=== PATIENT | female | born 1965 | race African-American/Black ===

== ENCOUNTER 2017-02-11 11:48 | Emergency (ER) | payer MEDICAID ==
[~2017-02-11] VITALS: Ht 160 cm; Wt 77.3 kg
[~2017-02-11 11:48] MED LIST: ALIGN; AMBIEN 10MG10 MG PO; AMBIEN 5MG TABLE5 MG PO; ANTIBIOTIC EAR; ANTIVERT 25MG25 MG PO; ARTHRITIS MED; BENADRYL25 M2 PO; BENADRYL25 MG PO; CARDI-OMEGA1000 MG PO; CHOLESTEROL MED; CIPRO HC OTIC S10 ML OT; COLACE 100100 MG/CAP PO; CRANBERRY CONC500 MG PO; CRANBERRY400 MG PO; DIAZEPAM2 MG PO; DOXYCYCLINE 10100 MG PO; FAT ABSORB1 CAP PO; FLEXERIL 1010 MG/TAB PO; FLONASE NASAL S16 GM NS; HCTZ; HCTZ 25MG TAB25 MG PO; INDOCIN50 MG PO; IRON325 M1 PO; LORTAB 5/500 501 TAB PO; LUNESTA 1MG TAB1 MG PO; MULTIVITAMIN1 TA1 PO; MVI; NEPHRO-VITE1 TA1 PO; NEURONTIN100 MG/CAP PO; NORCO 325 MG-51 TAB PO; PHENERGAN W/CO120 ML PO; PRILOSEC 20MG20 MG PO; PRINIVIL10 MG PO; PROBIOTICA100 Milli1 PO; SAVELLA50 MG PO; SINGULAIR10 MG PO; TENORMIN 5050 MG/TAB PO; TOPROL XL25 MG PO; TUSS PO; VENTOLIN0.09 MG IH; VERELAN120 MG PO; VICODIN 5/5001 UDTAB PO; VITAMIN D 400400 IU PO; ZITHROMAX 250M250 MG PO; ZITHROMAX Z PA250 MG PO; ZOCOR5 MG PO; ZOFRAN 4MG T4 MG/TAB PO
[2017-02-11 12:02] VITALS: BP 140/75; PULSE 65; TEMP 98.3
[2017-02-11] MEDS ORDERED: CEPHALEXIN500 M1 PO (12:23)
[2017-02-11] MEDS ORDERED: NORCO 325 MG-51 TAB PO (12:23)
== END 2017-02-11 12:35 | disposition home or self-care (01) ==
LOC: COL.ER 11:48
DX: L03.012 Cellulitis of left finger (principal)

== ENCOUNTER 2017-09-25 13:07 | Emergency (ER) | payer MEDICAID ==
[~2017-09-25] VITALS: Ht 160 cm; Wt 93.2 kg
[~2017-09-25 13:07] MED LIST changes: +CEPHALEXIN500 M1 PO
[2017-09-25 13:09] VITALS: BP 114/55; TEMP 98.5
[2017-09-25] MEDS ORDERED: PROVENTIL0.09 MG/A1 IH (15:32)
[2017-09-25] MEDS ORDERED: DOXYCYCLINE 10100 MG PO (15:32)
[2017-09-25] MEDS ORDERED: PREDNISONE20 MG PO (15:32)
[2017-09-25 15:40] VITALS: PULSE 77
== END 2017-09-25 15:40 | disposition home or self-care (01) ==
LOC: COL.ER 13:07
DX: J40 Bronchitis, not specified as acute or chronic (principal); I10 Essential (primary) hypertension; G62.9 Polyneuropathy, unspecified
CPT/HCPCS: J7512

== ENCOUNTER 2018-07-25 12:22 | Emergency (ER) | payer MEDICAID ==
[~2018-07-25] VITALS: Ht 160 cm; Wt 90.9 kg
[~2018-07-25 12:22] MED LIST changes: +PREDNISONE20 MG PO; +PROVENTIL0.09 MG/A1 IH
[2018-07-25 12:34] VITALS: TEMP 98.1
[2018-07-25 13:56] LABS: BASO % 0.2 % (0.0-2.0); GRAN # 10.7 (1.4-6.5); HEMOGLOBIN 12.2 g/dl (12.5-16.0); LYMPH # 1.5 (1.2-3.4); LYMPH % 11.4 % (20.0-51.0); MEAN CELL VOLUME 82 fl (80.0-100.0); MEAN CORPUSCULAR HEMOGLOBIN 27 pg (27.0-31.0); MEAN CORPUSCULAR HGB CONC 33 g/dl (33.0-37.0); MEAN PLATELET VOLUME 10.6 fl (7.4-10.4); MONO # 0.5 (0.1-0.6); MONO % 4.2 % (1.7-9.3); PLATELET COUNT 334 K/mm3 (130-400); RED BLOOD COUNT 4.53 M/mm3 (4.10-5.30); REDCELL DISTRIBUTION WIDTH-CV 15.3 % (11.5-14.5)
[2018-07-25 14:05] LABS: ALBUMIN 4.7 gm/dL (3.5-5.0); BILIRUBIN,TOTAL 0.5 mg/dL (0.0-1.0); C-REACTIVE PROTEIN 1.9 mg/dL (0.0-0.9); CALCIUM 10.5 mg/dL (8.4-10.2); CREATININE, serum 0.87 mg/dL (0.52-1.25)
[2018-07-25 15:06] LABS: COLLECTION METHOD CLEAN CATCH
[2018-07-25 15:12] LABS: MUCOUS Present /lpf; PH 5 (5-8); SQUAMOUS EPITHELIAL 0-2 /hpf; URINE APPEARANCE Clear; URINE BACTERIA None Seen /hpf; URINE BILIRUBIN Negative (NEGATIVE); URINE BLOOD Negative (NEGATIVE); URINE COLOR Yellow; URINE GLUCOSE Negative (NEGATIVE); URINE KETONE Negative (NEGATIVE); URINE LEUKOCYTE ESTERASE Negative (NEGATIVE); URINE NITRATE Negative (NEGATIVE); URINE PROTEIN(semi-quant) 1+ (NEGATIVE); URINE RBC 0-2 /hpf; URINE UROBILINOGEN Negative (NEGATIVE)
[2018-07-25] MEDS ORDERED: PHENERGAN 25 TA25 MG PO (16:00)
[2018-07-25] MEDS ORDERED: FLAGYL500 MG PO (16:00)
[2018-07-25] MEDS ORDERED: NORCO 325 MG-51 TAB PO (16:00)
[2018-07-25] MEDS ORDERED: CIPRO 500MG TA500 MG PO (16:00)
[2018-07-25 16:47] VITALS: BP 138/78; PULSE 91
== END 2018-07-25 16:49 | disposition home or self-care (01) ==
LOC: COL.ER 12:22
PROVIDERS: Emergency Medicine
DX: K52.9 Noninfective gastroenteritis and colitis, unspecified (principal); M10.9 Gout, unspecified; Z79.899 Other long term (current) drug therapy
CPT/HCPCS: J2405; J2550; J7030; Q9967

== ENCOUNTER 2018-08-06 14:08 | Emergency (ER) | payer MEDICAID ==
[~2018-08-06] VITALS: Ht 157.5 cm; Wt 90.9 kg
[~2018-08-06 14:08] MED LIST changes: +CIPRO 500MG TA500 MG PO; +FLAGYL500 MG PO; +PHENERGAN 25 TA25 MG PO
[2018-08-06 14:11] VITALS: TEMP 98.8
[2018-08-06 14:59] LABS: BASO # 0.1 (0.0-0.2); BASO % 0.8 % (0.0-2.0); EOS # 0.1 (0.0-0.7); EOS % 1.2 % (0-4.0); GRAN # 3.3 (1.4-6.5); GRAN % 54.7 % (42.2-75.2); HEMOGLOBIN 11.5 g/dl (12.5-16.0); LYMPH % 33.2 % (20.0-51.0); MEAN CELL VOLUME 82 fl (80.0-100.0); MEAN CORPUSCULAR HEMOGLOBIN 27 pg (27.0-31.0); MEAN CORPUSCULAR HGB CONC 33 g/dl (33.0-37.0); MEAN PLATELET VOLUME 10.7 fl (7.4-10.4); MONO # 0.6 (0.1-0.6); MONO % 9.9 % (1.7-9.3); PLATELET COUNT 290 K/mm3 (130-400); RED BLOOD COUNT 4.28 M/mm3 (4.10-5.30); REDCELL DISTRIBUTION WIDTH-CV 15.5 % (11.5-14.5)
[2018-08-06 15:01] LABS: HEMATOCRIT 35.2 % (37.0-47.0)
[2018-08-06 15:07] LABS: ALANINE AMINOTRANSFERASE 48 U/L (9-52); ALBUMIN 4.2 gm/dL (3.5-5.0); ALKALINE PHOSPHATASE 53 U/L (50-136); ANION GAP 5 mmol/L (7-16); AST,SGOT 40 U/L (15-37); BILIRUBIN,TOTAL 0.2 mg/dL (0.0-1.0); BLOOD UREA NITROGEN 14 mg/dL (7-17); CALCIUM 9.6 mg/dL (8.4-10.2); CARBON DIOXIDE 29 mmol/L (22-30); CHLORIDE 107 mmol/L (98-107); CREATININE, serum 0.76 mg/dL (0.52-1.25); GLUCOSE 85 mg/dL (74-106); LIPASE 52 U/L (23-300); POTASSIUM 3.9 mmol/L (3.4-5.0); SODIUM 140 mmol/L (137-145); TOTAL PROTEIN 7.8 gm/dL (6.4-8.2)
[2018-08-06 15:12] LABS: C-REACTIVE PROTEIN < 0.5 mg/dL (0.0-0.9)
[2018-08-06 16:13] LABS: COLLECTION METHOD CLEAN CATCH
[2018-08-06 16:19] LABS: MUCOUS Present /lpf; PH 6 (5-8); SQUAMOUS EPITHELIAL 0-2 /hpf; URINE APPEARANCE Clear; URINE BACTERIA None Seen /hpf; URINE BILIRUBIN Negative (NEGATIVE); URINE BLOOD Negative (NEGATIVE); URINE COLOR Yellow; URINE GLUCOSE Negative (NEGATIVE); URINE KETONE Negative (NEGATIVE); URINE LEUKOCYTE ESTERASE Negative (NEGATIVE); URINE NITRATE Negative (NEGATIVE); URINE PROTEIN(semi-quant) Negative (NEGATIVE); URINE RBC 0-2 /hpf; URINE UROBILINOGEN Negative (NEGATIVE)
[2018-08-06 17:11] VITALS: BP 130/81; PULSE 79
== END 2018-08-06 17:11 | disposition home or self-care (01) ==
LOC: COL.ER 14:08
PROVIDERS: Emergency Medicine
DX: R10.84 Generalized abdominal pain (principal); R19.7 Diarrhea, unspecified
CPT/HCPCS: J1170; J7030

== ENCOUNTER → 2018-09-10 | Outpatient (CLI) | payer MEDICAID | LOC: COL.LAB 15:08 | DX: J30.1 Allergic rhinitis due to pollen (principal) ==

== ENCOUNTER 2019-03-11 22:20 | Emergency (ER) | payer MEDICAID ==
[~2019-03-11] VITALS: Ht 160 cm; Wt 91.8 kg
[2019-03-11 22:26] VITALS: BP 176/88; TEMP 99.7
[2019-03-11 22:45] LABS: STREP SCREEN NEGATIVE
[2019-03-11] MEDS ORDERED: ZITHROMAX Z PA250 MG PO (23:30)
[2019-03-11 23:40] VITALS: PULSE 89
== END 2019-03-11 23:40 | disposition home or self-care (01) ==
LOC: COL.ER 22:20
PROVIDERS: Emergency Medicine
DX: J06.9 Acute upper respiratory infection, unspecified (principal)

== ENCOUNTER 2019-05-11 19:14 | Emergency (ER) | payer MEDICAID ==
[~2019-05-11] VITALS: Ht 157.5 cm; Wt 91.8 kg
[2019-05-11 19:23] VITALS: TEMP 99.2
[2019-05-11 19:48] LABS: COLLECTION METHOD CLEAN CATCH
[2019-05-11 20:02] LABS: MUCOUS Present /lpf; PH 7 (5-8); SQUAMOUS EPITHELIAL 0-2 /hpf; URINE APPEARANCE Clear; URINE BACTERIA None Seen /hpf; URINE BILIRUBIN Negative (NEGATIVE); URINE BLOOD Negative (NEGATIVE); URINE COLOR Yellow; URINE GLUCOSE Negative (NEGATIVE); URINE KETONE Negative (NEGATIVE); URINE LEUKOCYTE ESTERASE Negative (NEGATIVE); URINE NITRATE Negative (NEGATIVE); URINE PROTEIN(semi-quant) 2+ (NEGATIVE); URINE UROBILINOGEN Negative (NEGATIVE)
[2019-05-11 20:09] LABS: BASO % 0.3 % (0.0-2.0); EOS % 0.3 % (0-4.0); GRAN # 10.5 (1.4-6.5); GRAN % 74.4 % (42.2-75.2); HEMOGLOBIN 11.9 g/dl (12.5-16.0); LYMPH # 2.4 (1.2-3.4); LYMPH % 16.8 % (20.0-51.0); MEAN CELL VOLUME 81 fl (80.0-100.0); MEAN CORPUSCULAR HEMOGLOBIN 27 pg (27.0-31.0); MEAN CORPUSCULAR HGB CONC 34 g/dl (33.0-37.0); MEAN PLATELET VOLUME 9.7 fl (7.4-10.4); MONO # 1.1 (0.1-0.6); MONO % 7.8 % (1.7-9.3); PLATELET COUNT 321 K/mm3 (130-400); REDCELL DISTRIBUTION WIDTH-CV 15.5 % (11.5-14.5)
[2019-05-11 20:11] LABS: HEMATOCRIT 35.5 % (37.0-47.0)
[2019-05-11 20:30] LABS: ALANINE AMINOTRANSFERASE 26 U/L (9-52); ALBUMIN 4.6 gm/dL (3.5-5.0); ALKALINE PHOSPHATASE 81 U/L (50-136); ANION GAP 12 mmol/L (7-16); AST,SGOT 31 U/L (15-37); BILIRUBIN,TOTAL 0.4 mg/dL (0.0-1.0); BLOOD UREA NITROGEN 16 mg/dL (7-17); C-REACTIVE PROTEIN 3.3 mg/dL (0.0-0.9); CALCIUM 9.6 mg/dL (8.4-10.2); CARBON DIOXIDE 25 mmol/L (22-30); CHLORIDE 102 mmol/L (98-107); CREATININE, serum 0.78 (0.52-1.25); GLUCOSE 102 mg/dL (74-106); LIPASE 25 U/L (23-300); POTASSIUM 3.6 mmol/L (3.4-5.0); SODIUM 139 mmol/L (137-145); TOTAL PROTEIN 8.5 gm/dL (6.4-8.2)
[2019-05-11 20:54] LABS: TROPONIN-I < 0.012 ng/mL (0.000-0.035)
[2019-05-11] MEDS ORDERED: CIPRO 500MG TA500 MG PO (22:04)
[2019-05-11] MEDS ORDERED: PHENERGAN 25 TA25 MG PO (22:04)
[2019-05-11] MEDS ORDERED: FLAGYL500 MG PO (22:04)
[2019-05-11] MEDS ORDERED: NORCO 325 MG-51 TAB PO (22:04)
[2019-05-11 22:37] VITALS: BP 148/81; PULSE 85
== END 2019-05-11 22:37 | disposition home or self-care (01) ==
LOC: COL.ER 19:14
PROVIDERS: Emergency Medicine
DX: K52.9 Noninfective gastroenteritis and colitis, unspecified (principal); Z98.890 Other specified postprocedural states; Z79.51 Long term (current) use of inhaled steroids
CPT/HCPCS: J2405; J3010; J7030; Q9967

== ENCOUNTER 2019-12-08 15:51 | Emergency (ER) | payer MEDICAID ==
[~2019-12-08] VITALS: Ht 157.5 cm; Wt 95.5 kg
[2019-12-08 16:01] VITALS: TEMP 96.9
[2019-12-08] MEDS ORDERED: CARTIA XT120 MG PO (16:14)
[2019-12-08 17:22] LABS: BASO % 0.7 % (0.0-2.0); EOS # 0.2 (0.0-0.7); EOS % 3.8 % (0-4.0); GRAN # 1.6 (1.4-6.5); GRAN % 37.9 % (42.2-75.2); HEMATOCRIT 37.6 % (37.0-47.0); HEMOGLOBIN 12.3 g/dl (12.5-16.0); LYMPH # 2.1 (1.2-3.4); LYMPH % 48.9 % (20.0-51.0); MEAN CELL VOLUME 84 fl (80.0-100.0); MEAN CORPUSCULAR HEMOGLOBIN 27 pg (27.0-31.0); MEAN CORPUSCULAR HGB CONC 33 g/dl (33.0-37.0); MEAN PLATELET VOLUME 9.7 fl (7.4-10.4); MONO # 0.4 (0.1-0.6); MONO % 8.5 % (1.7-9.3); PLATELET COUNT 308 K/mm3 (130-400); RED BLOOD COUNT 4.49 M/mm3 (4.10-5.30); REDCELL DISTRIBUTION WIDTH-CV 15.4 % (11.5-14.5)
[2019-12-08 17:38] LABS: ALANINE AMINOTRANSFERASE 23 U/L (4-34); ALBUMIN 4.5 gm/dL (3.5-5.0); ALKALINE PHOSPHATASE 88 U/L (50-136); ANION GAP 9 mmol/L (7-16); AST,SGOT 29 U/L (15-37); BILIRUBIN,TOTAL 0.2 mg/dL (0.0-1.0); BLOOD UREA NITROGEN 17 mg/dL (7-17); CALCIUM 9.5 mg/dL (8.4-10.2); CARBON DIOXIDE 25 mmol/L (22-30); CHLORIDE 106 mmol/L (98-107); CREATININE, serum 0.95 (0.52-1.25); GLUCOSE 146 mg/dL (74-106); POTASSIUM 4.2 mmol/L (3.4-5.0); SODIUM 140 mmol/L (137-145); TOTAL PROTEIN 8.6 gm/dL (6.4-8.2)
[2019-12-08] MEDS ORDERED: PRINIVIL5 MG PO (17:48)
[2019-12-08 17:51] LABS: TROPONIN-I < 0.012 ng/mL (0.000-0.035)
[2019-12-08 18:15] VITALS: BP 133/88; PULSE 81
== END 2019-12-08 18:20 | disposition home or self-care (01) ==
LOC: COL.ER 15:51
PROVIDERS: Emergency Medicine
DX: I10 Essential (primary) hypertension (principal); Z79.51 Long term (current) use of inhaled steroids

== ENCOUNTER 2020-06-24 18:49 | Emergency (ER) | payer MEDICAID ==
[~2020-06-24] VITALS: Ht 160 cm; Wt 95.5 kg
[~2020-06-24 18:49] MED LIST changes: +CARTIA XT120 MG PO; +PRINIVIL5 MG PO
[2020-06-24 19:00] VITALS: TEMP 98.8
[2020-06-24 19:59] LABS: COLLECTION METHOD CLEAN CATCH
[2020-06-24 20:00] LABS: BASO # 0.1 (0.0-0.2); BASO % 1.2 % (0.0-2.0); EOS # 0.2 (0.0-0.7); EOS % 2.8 % (0-4.0); GRAN # 3.6 (1.4-6.5); GRAN % 52.8 % (42.2-75.2); HEMOGLOBIN 11.8 g/dl (12.5-16.0); LYMPH # 2.4 (1.2-3.4); LYMPH % 34.7 % (20.0-51.0); MEAN CELL VOLUME 81 fl (80.0-100.0); MEAN CORPUSCULAR HEMOGLOBIN 27 pg (27.0-31.0); MEAN CORPUSCULAR HGB CONC 33 g/dl (33.0-37.0); MEAN PLATELET VOLUME 10.2 fl (7.4-10.4); MONO # 0.6 (0.1-0.6); MONO % 8.4 % (1.7-9.3); PLATELET COUNT 325 K/mm3 (130-400); RED BLOOD COUNT 4.46 M/mm3 (4.10-5.30); REDCELL DISTRIBUTION WIDTH-CV 15.3 % (11.5-14.5)
[2020-06-24 20:02] LABS: HEMATOCRIT 36.3 % (37.0-47.0)
[2020-06-24 20:13] LABS: MUCOUS Present /lpf; PH 6 (5-8); URINE APPEARANCE Hazy; URINE BACTERIA Rare /hpf; URINE BILIRUBIN Negative (NEGATIVE); URINE BLOOD Negative (NEGATIVE); URINE COLOR Yellow; URINE GLUCOSE Negative (NEGATIVE); URINE KETONE Negative (NEGATIVE); URINE LEUKOCYTE ESTERASE Negative (NEGATIVE); URINE NITRATE Negative (NEGATIVE); URINE PROTEIN(semi-quant) 2+ (NEGATIVE); URINE RBC 0-2 /hpf; URINE UROBILINOGEN Negative (NEGATIVE)
[2020-06-24 20:29] LABS: ALBUMIN 4.8 gm/dL (3.5-5.0); BILIRUBIN,TOTAL 0.4 mg/dL (0.0-1.0); C-REACTIVE PROTEIN 1.7 mg/dL (0.0-0.9); CALCIUM 9.9 mg/dL (8.4-10.2); CREATININE, serum 0.93 (0.52-1.25); POTASSIUM 4.1 mmol/L (3.4-5.0); TOTAL PROTEIN 8.8 gm/dL (6.4-8.2)
[2020-06-24] MEDS ORDERED: MEDROL 4MG DOSPA4 MG PO (21:53)
[2020-06-24] MEDS ORDERED: PHENERGAN 25 TA25 MG PO (21:53)
[2020-06-24 22:21] VITALS: BP 159/78; PULSE 92
[2020-06-24 22:39] LABS: ERYTHROCYTE SEDIMENTATION RATE 42 mm/hr (0-30)
== END 2020-06-24 22:22 | disposition home or self-care (01) ==
LOC: COL.ER 18:49
PROVIDERS: Emergency Medicine
DX: M25.50 Pain in unspecified joint (principal); R53.81 Other malaise; Z88.0 Allergy status to penicillin; Z88.8 Allergy status to other drugs, medicaments and biological substances; Z79.899 Other long term (current) drug therapy
CPT/HCPCS: J7512

== ENCOUNTER 2021-01-30 08:14 | Emergency (ER) | payer MEDICAID ==
[~2021-01-30] VITALS: Ht 160 cm; Wt 86.4 kg
[~2021-01-30 08:14] MED LIST changes: +MEDROL 4MG DOSPA4 MG PO
[2021-01-30 08:31] VITALS: TEMP 98.4
[2021-01-30 09:14] LABS: COLLECTION METHOD CLEAN CATCH
[2021-01-30 09:16] LABS: BASO # 0.1 (0.0-0.2); BASO % 0.8 % (0.0-2.0); EOS # 0.2 (0.0-0.7); EOS % 1.4 % (0-4.0); GRAN # 7.7 (1.4-6.5); GRAN % 69.8 % (42.2-75.2); HEMATOCRIT 37.4 % (37.0-47.0); HEMOGLOBIN 12.1 g/dl (12.5-16.0); LYMPH # 2.1 (1.2-3.4); LYMPH % 18.6 % (20.0-51.0); MEAN CELL VOLUME 83 fl (80.0-100.0); MEAN CORPUSCULAR HEMOGLOBIN 27 pg (27.0-31.0); MEAN CORPUSCULAR HGB CONC 32 g/dl (33.0-37.0); MEAN PLATELET VOLUME 10.2 fl (7.4-10.4); MONO % 8.9 % (1.7-9.3); PLATELET COUNT 373 K/mm3 (130-400); RED BLOOD COUNT 4.53 M/mm3 (4.10-5.30); REDCELL DISTRIBUTION WIDTH-CV 16.1 % (11.5-14.5)
[2021-01-30 09:22] LABS: AMORPHOUS CRYSTAL Present /uL; MUCOUS Present /lpf; PH 6 (5-8); SQUAMOUS EPITHELIAL None Seen /hpf; URINE APPEARANCE Cloudy; URINE BACTERIA Occasional /hpf; URINE BILIRUBIN Negative (NEGATIVE); URINE BLOOD 3+ (NEGATIVE); URINE COLOR Yellow; URINE GLUCOSE Negative (NEGATIVE); URINE KETONE Negative (NEGATIVE); URINE LEUKOCYTE ESTERASE 2+ (NEGATIVE); URINE NITRATE Positive (NEGATIVE); URINE PROTEIN(semi-quant) 2+ (NEGATIVE); URINE RBC >50 /hpf; URINE UROBILINOGEN Negative (NEGATIVE)
[2021-01-30 09:23] LABS: ALBUMIN 4.4 gm/dL (3.5-5.0); BILIRUBIN,TOTAL 0.3 mg/dL (0.0-1.0); C-REACTIVE PROTEIN 2.5 mg/dL (0.0-0.9); CALCIUM 9.2 mg/dL (8.4-10.2); CREATININE, serum 0.84 (0.52-1.25); POTASSIUM 3.9 mmol/L (3.4-5.0); TOTAL PROTEIN 9.1 gm/dL (6.4-8.2)
[2021-01-30 10:17] LABS: INR 1.1 (0.8-3.0); PROTHROMBIN TIME 12.4 SECONDS (9.7-12.8)
[2021-01-30] MEDS ORDERED: CIPRO 500MG TA500 MG PO (10:56)
[2021-01-30 11:22] VITALS: BP 153/91; PULSE 85
== END 2021-01-30 11:35 | disposition home or self-care (01) ==
LOC: COL.ER 08:14
PROVIDERS: Emergency Medicine
DX: N12 Tubulo-interstitial nephritis, not specified as acute or chronic (principal); M79.7 Fibromyalgia; I10 Essential (primary) hypertension; Z88.0 Allergy status to penicillin; Z91.040 Latex allergy status
CPT/HCPCS: J0696; J7030; Q9967

== ENCOUNTER 2021-02-12 08:23 | Emergency (ER) | payer MEDICAID ==
[~2021-02-12] VITALS: Ht 160 cm; Wt 89.5 kg
[2021-02-12 08:47] LABS: BASO # 0.1 (0.0-0.2); EOS # 0.1 (0.0-0.7); EOS % 1.2 % (0-4.0); GRAN # 2.8 (1.4-6.5); HEMOGLOBIN 11.8 g/dl (12.5-16.0); LYMPH # 2.2 (1.2-3.4); LYMPH % 37.2 % (20.0-51.0); MEAN CELL VOLUME 82 fl (80.0-100.0); MEAN CORPUSCULAR HEMOGLOBIN 26 pg (27.0-31.0); MEAN CORPUSCULAR HGB CONC 32 g/dl (33.0-37.0); MONO # 0.7 (0.1-0.6); MONO % 12.4 % (1.7-9.3); PLATELET COUNT 320 K/mm3 (130-400); RED BLOOD COUNT 4.48 M/mm3 (4.10-5.30); REDCELL DISTRIBUTION WIDTH-CV 16.1 % (11.5-14.5)
[2021-02-12 08:48] LABS: HEMATOCRIT 36.9 % (37.0-47.0)
[2021-02-12 08:58] LABS: ALBUMIN 4.4 gm/dL (3.5-5.0); BILIRUBIN,TOTAL 0.3 mg/dL (0.0-1.0); CALCIUM 9.5 mg/dL (8.4-10.2); CREATININE, serum 0.91 (0.52-1.25); POTASSIUM 3.9 mmol/L (3.4-5.0); TOTAL PROTEIN 8.9 gm/dL (6.4-8.2)
[2021-02-12] MEDS ORDERED: PRILOSEC 20MG20 MG PO (09:11)
[2021-02-12 09:13] LABS: PROTHROMBIN TIME 11.6 SECONDS (9.7-12.8)
[2021-02-12 09:33] LABS: TROPONIN-I 0.014 ng/mL (0.000-0.035)
[2021-02-12] MEDS ORDERED: TYLENOL 325MG325 MG PO (11:49)
[2021-02-12 12:10] VITALS: BP 133/84; PULSE 80; TEMP 98.6
== END 2021-02-12 12:17 | disposition home or self-care (01) ==
LOC: COL.ER 08:23
PROVIDERS: Emergency Medicine
DX: R07.89 Other chest pain (principal); I10 Essential (primary) hypertension; Z91.040 Latex allergy status; Z88.0 Allergy status to penicillin; Z79.899 Other long term (current) drug therapy

== ENCOUNTER 2021-03-14 11:59 | Emergency (ER) | payer MEDICAID ==
[~2021-03-14] VITALS: Ht 152.4 cm; Wt 86.4 kg
[~2021-03-14 11:59] MED LIST changes: +TYLENOL 325MG325 MG PO
[2021-03-14 12:00] VITALS: TEMP 98.1
[2021-03-14] MEDS ORDERED: ZYLOPRIM 300MG300 MG PO (12:29)
[2021-03-14] MEDS ORDERED: COLCRYS0.6 MG PO (12:29)
[2021-03-14] MEDS ORDERED: INDOCIN 25MG CA25 MG PO (12:29)
[2021-03-14 13:15] LABS: MEAN CELL VOLUME 82 fl (80.0-100.0); MEAN CORPUSCULAR HEMOGLOBIN 27 pg (27.0-31.0); MEAN CORPUSCULAR HGB CONC 33 g/dl (33.0-37.0); MEAN PLATELET VOLUME 10.2 fl (7.4-10.4); PLATELET COUNT 269 K/mm3 (130-400); RED BLOOD COUNT 4.07 M/mm3 (4.10-5.30); REDCELL DISTRIBUTION WIDTH-CV 16.3 % (11.5-14.5)
[2021-03-14 13:17] LABS: HEMATOCRIT 33.5 % (37.0-47.0)
[2021-03-14 13:26] LABS: CALCIUM 9.3 mg/dL (8.4-10.2); CREATININE, serum 0.94 (0.52-1.25); POTASSIUM 3.8 mmol/L (3.4-5.0); URIC ACID 5.6 mg/dL (2.5-6.2)
[2021-03-14 14:15] VITALS: BP 168/82; PULSE 79
== END 2021-03-14 14:15 | disposition home or self-care (01) ==
LOC: COL.ER 11:59
PROVIDERS: Emergency Medicine
DX: M10.072 Idiopathic gout, left ankle and foot (principal); M10.071 Idiopathic gout, right ankle and foot; E66.01 Morbid (severe) obesity due to excess calories

== ENCOUNTER 2021-04-21 10:51 | Emergency (ER) | payer MEDICAID ==
[~2021-04-21] VITALS: Ht 160 cm; Wt 86.4 kg
[~2021-04-21 10:51] MED LIST changes: +COLCRYS0.6 MG PO; +INDOCIN 25MG CA25 MG PO; +ZYLOPRIM 300MG300 MG PO
[2021-04-21 12:21] LABS: BASO # 0.1 (0.0-0.2); BASO % 1.1 % (0.0-2.0); EOS # 0.1 (0.0-0.7); EOS % 1.3 % (0-4.0); GRAN # 2.8 (1.4-6.5); GRAN % 50.2 % (42.2-75.2); HEMOGLOBIN 11.4 g/dl (12.5-16.0); LYMPH # 2.1 (1.2-3.4); LYMPH % 38.1 % (20.0-51.0); MEAN CELL VOLUME 84 fl (80.0-100.0); MEAN CORPUSCULAR HEMOGLOBIN 27 pg (27.0-31.0); MEAN CORPUSCULAR HGB CONC 32 g/dl (33.0-37.0); MEAN PLATELET VOLUME 10.4 fl (7.4-10.4); MONO # 0.5 (0.1-0.6); MONO % 9.1 % (1.7-9.3); PLATELET COUNT 316 K/mm3 (130-400); RED BLOOD COUNT 4.27 M/mm3 (4.10-5.30); REDCELL DISTRIBUTION WIDTH-CV 16.9 % (11.5-14.5)
[2021-04-21 12:30] LABS: ALBUMIN 4.7 gm/dL (3.5-5.0); BILIRUBIN,TOTAL 0.5 mg/dL (0.0-1.0); CALCIUM 9.3 mg/dL (8.4-10.2); CREATININE, serum 0.91 (0.52-1.25); POTASSIUM 4.1 mmol/L (3.4-5.0); TOTAL PROTEIN 8.9 gm/dL (6.4-8.2)
[2021-04-21 13:03] LABS: COLLECTION METHOD CLEAN CATCH
[2021-04-21 13:12] LABS: MUCOUS Present /lpf; PH 6 (5-8); SQUAMOUS EPITHELIAL 0-2 /hpf; URINE APPEARANCE Clear; URINE BACTERIA None Seen /hpf; URINE BILIRUBIN Negative (NEGATIVE); URINE BLOOD Negative (NEGATIVE); URINE COLOR Yellow; URINE GLUCOSE Negative (NEGATIVE); URINE KETONE 1+ (NEGATIVE); URINE LEUKOCYTE ESTERASE Negative (NEGATIVE); URINE NITRATE Negative (NEGATIVE); URINE PROTEIN(semi-quant) 1+ (NEGATIVE); URINE RBC 0-2 /hpf; URINE UROBILINOGEN Negative (NEGATIVE)
[2021-04-21] MEDS ORDERED: ZOFRAN ODT4 MG PO (15:23)
[2021-04-21] MEDS ORDERED: NORCO 325 MG-51 TAB PO (15:23)
[2021-04-21 15:30] VITALS: BP 142/87; PULSE 87; TEMP 97.3
== END 2021-04-21 15:45 | disposition home or self-care (01) ==
LOC: COL.ER 10:51
PROVIDERS: Personal Emergency Response Attendant
DX: R10.31 Right lower quadrant pain (principal); I10 Essential (primary) hypertension; G62.9 Polyneuropathy, unspecified; Z87.442 Personal history of urinary calculi; Z79.899 Other long term (current) drug therapy
CPT/HCPCS: J2270; J7030; Q9967

== ENCOUNTER 2021-05-29 11:42 | Emergency (ER) | payer MEDICAID ==
[~2021-05-29] VITALS: Ht 160 cm; Wt 85.9 kg
[~2021-05-29 11:42] MED LIST changes: +ZOFRAN ODT4 MG PO
[2021-05-29] MEDS ORDERED: FLEXERIL 1010 MG/TAB PO (12:21)
[2021-05-29] MEDS ORDERED: NORCO 325 MG-51 TAB PO (12:21)
[2021-05-29 12:29] VITALS: BP 176/74; PULSE 62; TEMP 98.6
== END 2021-05-29 12:31 | disposition home or self-care (01) ==
LOC: COL.ER 11:42
DX: S39.012A Strain of muscle, fascia and tendon of lower back, initial encounter (principal); S29.012A Strain of muscle and tendon of back wall of thorax, initial encounter; W01.0XXA Fall on same level from slipping, tripping and stumbling without subsequent striking against object, initial encounter; Y92.000 Kitchen of unspecified non-institutional (private) residence as the place of occurrence of the external cause
CPT/HCPCS: J1885

== ENCOUNTER 2021-10-18 18:37 | Emergency (ER) | payer MEDICAID ==
[~2021-10-18] VITALS: Ht 157.5 cm; Wt 85.0 kg
[2021-10-18 19:16] LABS: BASO % 0.3 % (0.0-2.0); EOS % 0.1 % (0.0-4.0); GRAN # 13.7 K/mm3 (1.4-6.5); GRAN % 88.7 % (42.2-75.2); HEMATOCRIT 40.3 % (37.0-47.0); HEMOGLOBIN 13.7 g/dl (12.5-16.0); LYMPH # 1.1 K/mm3 (1.2-3.4); LYMPH % 7.2 % (20.0-51.0); MEAN CELL VOLUME 78 fl (80.0-100.0); MEAN CORPUSCULAR HEMOGLOBIN 26 pg (27-31); MEAN CORPUSCULAR HGB CONC 34 g/dl (33.0-37.0); MEAN PLATELET VOLUME 10.4 fl (7.4-10.4); MONO # 0.5 K/mm3 (0.1-0.6); MONO % 3.4 % (1.7-9.3); PLATELET COUNT 363 K/mm3 (130-400)
[2021-10-18 19:32] LABS: ALBUMIN 4.4 gm/dL (3.5-5.0); BILIRUBIN,TOTAL 0.5 mg/dL (0.2-1.2); CALCIUM 10.5 mg/dL (8.4-10.2); CREATININE, serum 1.35 mg/dL (0.57-1.11); TOTAL PROTEIN 9.2 gm/dL (6.2-8.1)
[2021-10-18 20:03] LABS: COLLECTION METHOD CLEAN CATCH
[2021-10-18 20:13] LABS: MUCOUS Present (NOT PRESENT); PH 5 (5-8); URINE APPEARANCE Hazy (CLEAR/HAZY); URINE BACTERIA None Seen /hpf (NONE SEEN); URINE BILIRUBIN Negative (NEGATIVE); URINE BLOOD Negative (NEGATIVE); URINE COLOR Yellow (YELLOW); URINE GLUCOSE Negative (NEGATIVE); URINE KETONE 1+ (NEGATIVE); URINE LEUKOCYTE ESTERASE Trace (NEGATIVE); URINE NITRATE Negative (NEGATIVE); URINE PROTEIN(semi-quant) 1+ (NEGATIVE); URINE RBC 0-2 /hpf (0-2); URINE UROBILINOGEN Negative (NEGATIVE)
[2021-10-18] MEDS ORDERED: NORCO 325 MG-51 TAB PO (21:01)
[2021-10-18] MEDS ORDERED: CIPRO 500MG TA500 MG PO (21:01)
[2021-10-18] MEDS ORDERED: ZOFRAN ODT4 MG PO (21:01)
[2021-10-18] MEDS ORDERED: FLAGYL500 MG PO (21:01)
[2021-10-18 21:41] VITALS: BP 142/66; PULSE 91; TEMP 98.6
== END 2021-10-18 21:51 | disposition home or self-care (01) ==
LOC: COL.ER 18:37
PROVIDERS: Emergency Medicine
DX: K52.9 Noninfective gastroenteritis and colitis, unspecified (principal); D72.829 Elevated white blood cell count, unspecified; I10 Essential (primary) hypertension; Z88.0 Allergy status to penicillin; Z91.040 Latex allergy status; Z20.822 Contact with and (suspected) exposure to COVID-19; Z79.899 Other long term (current) drug therapy
CPT/HCPCS: J1885; J2270; J2765; J7030; J7120; Q9967

== ENCOUNTER 2022-03-25 00:55 | Emergency (ER) | payer MEDICAID ==
[~2022-03-25] VITALS: Ht 160 cm; Wt 90.9 kg
[2022-03-25 01:42] LABS: BASO # 0.1 K/mm3 (0.0-0.2); BASO % 0.8 % (0.0-2.0); EOS # 0.1 K/mm3 (0.0-0.7); EOS % 0.9 % (0.0-4.0); GRAN # 5.9 K/mm3 (1.4-6.5); GRAN % 64.9 % (42.2-75.2); HEMATOCRIT 35.2 % (37.0-47.0); HEMOGLOBIN 11.5 g/dl (12.5-16.0); LYMPH # 2.2 K/mm3 (1.2-3.4); LYMPH % 23.6 % (20.0-51.0); MEAN CELL VOLUME 81 fl (80.0-100.0); MEAN CORPUSCULAR HEMOGLOBIN 27 pg (27-31); MEAN CORPUSCULAR HGB CONC 33 g/dl (33.0-37.0); MEAN PLATELET VOLUME 9.9 fl (7.4-10.4); MONO # 0.9 K/mm3 (0.1-0.6); MONO % 9.5 % (1.7-9.3); PLATELET COUNT 357 K/mm3 (130-400); RED BLOOD COUNT 4.34 M/mm3 (4.10-5.30); REDCELL DISTRIBUTION WIDTH-CV 14.3 % (11.5-14.5)
[2022-03-25] MEDS ORDERED: VITAMIN D 50,1.25 MG PO (01:43)
[2022-03-25] MEDS ORDERED: LUNESTA3 MG PO (01:43)
[2022-03-25] MEDS ORDERED: PLAQUENIL 200M200 MG PO (01:43)
[2022-03-25] MEDS ORDERED: MAXZIDE-25MG TA1 TAB PO (01:44)
[2022-03-25] MEDS ORDERED: CARDIZEM CD 24240 MG PO (01:44)
[2022-03-25 02:07] LABS: ALBUMIN 3.9 gm/dL (3.5-5.0); BILIRUBIN,TOTAL 0.2 mg/dL (0.2-1.2); C-REACTIVE PROTEIN 6.96 mg/dL (0.00-0.50); CREATININE, serum 1.18 mg/dL (0.57-1.11); POTASSIUM 3.8 mmol/L (3.5-4.5); TOTAL PROTEIN 8.6 gm/dL (6.2-8.1)
[2022-03-25 02:28] LABS: COLLECTION METHOD CLEAN CATCH
[2022-03-25 02:34] LABS: PH 5 (5-8); SQUAMOUS EPITHELIAL 0-2 /hpf (0-10); URINE APPEARANCE Clear (CLEAR/HAZY); URINE BACTERIA None Seen /hpf (NONE SEEN); URINE BILIRUBIN Negative (NEGATIVE); URINE BLOOD Negative (NEGATIVE); URINE COLOR Yellow (YELLOW); URINE GLUCOSE Negative (NEGATIVE); URINE KETONE Negative (NEGATIVE); URINE LEUKOCYTE ESTERASE Negative (NEGATIVE); URINE NITRATE Negative (NEGATIVE); URINE PROTEIN(semi-quant) Negative (NEGATIVE); URINE RBC 0-2 /hpf (0-2); URINE UROBILINOGEN Negative (NEGATIVE)
[2022-03-25 02:39] VITALS: TEMP 98.3
[2022-03-25 03:04] VITALS: BP 150/83
[2022-03-25] MEDS ORDERED: PREDNISONE20 MG PO (03:14)
[2022-03-25 03:32] VITALS: PULSE 87
== END 2022-03-25 03:32 | disposition home or self-care (01) ==
LOC: COL.ER 00:55
PROVIDERS: Emergency Medicine
DX: M54.41 Lumbago with sciatica, right side (principal); M13.871 Other specified arthritis, right ankle and foot; R10.84 Generalized abdominal pain; R79.82 Elevated C-reactive protein (CRP); R11.0 Nausea; Z91.040 Latex allergy status; Z28.310 Unvaccinated for COVID-19
CPT/HCPCS: J1885; J2060; J2360; J2405; J7030; J7512; Q9967

== ENCOUNTER → 2022-04-29 | Outpatient (CLI) | payer MEDICAID ==
[~2022-04-29] MED LIST changes: +CARDIZEM CD 24240 MG PO; +LUNESTA3 MG PO; +MAXZIDE-25MG TA1 TAB PO; +PLAQUENIL 200M200 MG PO; +VITAMIN D 50,1.25 MG PO
== END ==
LOC: COL.RAD 12:41
DX: M47.26 Other spondylosis with radiculopathy, lumbar region (principal); M43.16 Spondylolisthesis, lumbar region; M48.07 Spinal stenosis, lumbosacral region

== ENCOUNTER → 2022-05-06 | Outpatient (CLI) | payer MEDICAID | LOC: COL.RAD 13:05 | DX: M77.32 Calcaneal spur, left foot (principal) ==

== ENCOUNTER 2023-11-02 16:38 | Emergency (ER) | payer MEDICAID ==
[~2023-11-02] VITALS: Ht 160 cm; Wt 90.9 kg
[~2023-11-02 16:38] MED LIST changes: +APRESOLINE 25MG25 MG PO; +ELIQUIS 5MG PO; +PREDNISONE 5MG5 MG PO; +PROTONIX 40MG T40 MG PO; +VOLTAREN GEL 1%1 TU TP; +ZETIA 10MG TAB10 MG PO; +ZYLOPRIM 100MG100 MG PO
[2023-11-02 16:46] VITALS: TEMP 97.8
[2023-11-02 17:48] LABS: HEMOGLOBIN 11.7 g/dl (12.5-16.0); MEAN CELL VOLUME 80 fl (80.0-100.0); MEAN CORPUSCULAR HEMOGLOBIN 26 pg (27-31); MEAN CORPUSCULAR HGB CONC 33 g/dl (33.0-37.0); MEAN PLATELET VOLUME 10.4 fl (7.4-10.4); PLATELET COUNT 330 K/mm3 (130-400); RED BLOOD COUNT 4.43 M/mm3 (4.10-5.30); REDCELL DISTRIBUTION WIDTH-CV 16.5 % (11.5-14.5)
[2023-11-02 17:49] LABS: HEMATOCRIT 35.6 % (37.0-47.0)
[2023-11-02 18:05] LABS: ALBUMIN 3.2 gm/dL (3.5-5.0); BILIRUBIN,TOTAL 0.4 mg/dL (0.2-1.2); C-REACTIVE PROTEIN 25.32 mg/dL (0.00-0.50); CALCIUM 9.5 mg/dL (8.4-10.2); CREATININE, serum 0.97 mg/dL (0.57-1.11); POTASSIUM 3.8 mmol/L (3.5-4.5)
[2023-11-02] MEDS ORDERED: NS 1,000 ML IV ONE (18:15)
[2023-11-02 18:24] LABS: COLLECTION METHOD CLEAN CATCH
[2023-11-02 18:34] LABS: URINE APPEARANCE CLEAR (CLEAR/HAZY); URINE BLOOD NEGATIVE (NEGATIVE); URINE COLOR YELLOW (YELLOW); URINE GLUCOSE NEGATIVE (NEGATIVE); URINE KETONE NEGATIVE (NEGATIVE); URINE NITRATE NEGATIVE (NEGATIVE); URINE PROTEIN(semi-quant) TRACE (NEGATIVE); URINE UROBILINOGEN 0.2 E.U/dL (0.2-1.0)
[2023-11-02 18:41] LABS: BAND 2 % (0-10); EOSINOPHIL 1 % (0-4); LYMPHOCYTE 7 % (20.0-51.0); NEUTROPHILS 88 % (42.0-75.2)
[2023-11-02 18:43] LABS: ANISOCYTOSIS 1+
[2023-11-02] MEDS ORDERED: Ketorolac 15 MG/ML VIAL IV ONE (18:45)
[2023-11-02] MEDS ORDERED: Iohexol 300 - 100 ML VIAL IV ONE (18:58)
[2023-11-02] MEDS ORDERED: NS 50 ML IV SCH (18:58)
[2023-11-02 19:05] LABS: URINE RBC 0-2 /hpf (0-2); URINE WBC 0-2 /hpf (0-2)
[2023-11-02 19:06] LABS: SQUAMOUS EPITHELIAL 0-2 /hpf (0-10)
[2023-11-02 19:07] LABS: URINE BACTERIA RARE /hpf (NONE SEEN)
[2023-11-02] MEDS ORDERED: Ciprofloxacin 500 MG TAB PO ONE (20:00)
[2023-11-02] MEDS ORDERED: metroNIDAZOLE 250 MG TAB PO ONE (20:00)
[2023-11-02] MEDS ORDERED: CIPRO 500MG TA500 MG PO (20:06)
[2023-11-02] MEDS ORDERED: FLAGYL500 MG PO (20:06)
[2023-11-02 20:16] VITALS: BP 173/83; PULSE 73
== END 2023-11-02 20:30 | disposition home or self-care (01) ==
LOC: COL.ER 16:38
PROVIDERS: Nurse Practitioner
DX: K50.10 Crohn's disease of large intestine without complications (principal); G47.33 Obstructive sleep apnea (adult) (pediatric); Z91.040 Latex allergy status; Z88.0 Allergy status to penicillin
CPT/HCPCS: J1885; J7030; Q9967

== ENCOUNTER → 2024-01-18 | Outpatient (CLI) | payer MEDICAID ==
[2024-01-18 13:41] LABS: BASO # 0.1 K/mm3 (0.0-0.2); BASO % 1.5 % (0.0-2.0); EOS # 0.2 K/mm3 (0.0-0.7); EOS % 4.3 % (0.0-4.0); GRAN # 2.3 K/mm3 (1.4-6.5); GRAN % 43.5 % (42.2-75.2); LYMPH # 2.2 K/mm3 (1.2-3.4); LYMPH % 41.2 % (20.0-51.0); MEAN CELL VOLUME 81 fl (80.0-100.0); MEAN CORPUSCULAR HEMOGLOBIN 26 pg (27-31); MEAN CORPUSCULAR HGB CONC 33 g/dl (33.0-37.0); MONO # 0.5 K/mm3 (0.1-0.6); MONO % 9.1 % (1.7-9.3); PLATELET COUNT 291 K/mm3 (130-400); RED BLOOD COUNT 4.56 M/mm3 (4.10-5.30); REDCELL DISTRIBUTION WIDTH-CV 15.4 % (11.5-14.5)
[2024-01-18 13:44] LABS: HEMATOCRIT 36.8 % (37.0-47.0)
[2024-01-18 14:06] LABS: BILIRUBIN,TOTAL 0.2 mg/dL (0.2-1.2); CALCIUM 9.9 mg/dL (8.4-10.2); CHOLESTEROL RISK RATIO 5.8; CREATININE, serum 1.13 mg/dL (0.57-1.11); POTASSIUM 4.2 mEq/L (3.5-4.5); TOTAL PROTEIN 8.5 g/dl (6.2-8.1)
[2024-01-18 14:25] LABS: TSH w REFLEX 0.981 uIU/mL (0.350-4.940)
== END ==
LOC: COL.LAB 12:54
PROVIDERS: Family Medicine
DX: I10 Essential (primary) hypertension (principal); E11.9 Type 2 diabetes mellitus without complications; E78.00 Pure hypercholesterolemia, unspecified; R71.8 Other abnormality of red blood cells

== ENCOUNTER 2024-06-11 13:59 | Outpatient (RCR) | payer MEDICAID ==
[~2024-06-11 13:59] MED LIST changes: +PREDNISONE50 MG PO; +PROAIR HFA0.09 MG/AC IH
== END 2024-06-24 | disposition home or self-care (01) ==
LOC: WSST
DX: R49.0 Dysphonia (principal)

== ENCOUNTER 2024-08-23 21:10 | Emergency (ER) | payer MEDICAID ==
[~2024-08-23] VITALS: Ht 157.5 cm; Wt 90.9 kg
[2024-08-23 21:11] VITALS: TEMP 98.7
[2024-08-23 21:25] LABS: HEMOGLOBIN 12.1 g/dl (12.5-16.0); MEAN CELL VOLUME 82 fl (80.0-100.0); MEAN CORPUSCULAR HEMOGLOBIN 27 pg (27-31); MEAN CORPUSCULAR HGB CONC 33 g/dl (33.0-37.0); MEAN PLATELET VOLUME 10.3 fl (7.4-10.4); PLATELET COUNT 273 K/mm3 (130-400); RED BLOOD COUNT 4.51 M/mm3 (4.10-5.30); REDCELL DISTRIBUTION WIDTH-CV 15.7 % (11.5-14.5)
[2024-08-23] MEDS ORDERED: Ketorolac 15 MG/ML VIAL IV ONE (21:30)
[2024-08-23] MEDS ORDERED: Ondansetron 4 MG/2 ML VIAL IV ONE (21:30)
[2024-08-23] MEDS ORDERED: NS 1,000 ML IV ONE (21:30)
[2024-08-23 21:44] LABS: ALBUMIN 3.9 g/dL (3.4-4.8); BILIRUBIN,TOTAL 0.4 mg/dL (0.2-1.2); CALCIUM 9.9 mg/dL (8.4-10.2); CREATININE, serum 1.12 mg/dL (0.57-1.11); MAGNESIUM 2.1 mg/dL (1.6-2.6); POTASSIUM 4.1 mEq/L (3.5-4.5); TOTAL PROTEIN 7.6 g/dl (6.2-8.1)
[2024-08-23 21:50] LABS: TROPONIN-I 0.032 ng/mL (0.00-0.033)
[2024-08-23] MEDS ORDERED: Iohexol 300 - 100 ML VIAL IV ONE (22:03)
[2024-08-23] MEDS ORDERED: NS 50 ML IV ONE (22:05)
[2024-08-23 22:14] LABS: ANISOCYTOSIS 1+; BAND 7 % (0-10); LYMPHOCYTE 3 % (20.0-51.0); NEUTROPHILS 84 % (42.0-75.2); OVALOCYTES 1+; PLATELET ESTIMATE NORMAL (NORMAL)
[2024-08-23 22:22] LABS: COLLECTION METHOD CLEAN CATCH
[2024-08-23 22:33] LABS: URINE APPEARANCE CLEAR (CLEAR/HAZY); URINE BLOOD NEGATIVE (NEGATIVE); URINE COLOR YELLOW (YELLOW); URINE GLUCOSE NEGATIVE (NEGATIVE); URINE KETONE NEGATIVE (NEGATIVE); URINE NITRATE NEGATIVE (NEGATIVE); URINE PROTEIN(semi-quant) TRACE (NEGATIVE); URINE UROBILINOGEN 0.2 E.U/dL (0.2-1.0)
[2024-08-23] MEDS ORDERED: LEVAQUIN 5500 MG/TA1 PO (22:59)
[2024-08-23] MEDS ORDERED: levoFLOXacin 500 MG TAB PO ONE (23:00)
[2024-08-23 23:22] VITALS: BP 149/90; PULSE 96
== END 2024-08-23 23:10 | disposition home or self-care (01) ==
LOC: COL.ER 21:10
PROVIDERS: Emergency Medicine
DX: K52.9 Noninfective gastroenteritis and colitis, unspecified (principal); N39.0 Urinary tract infection, site not specified; Z88.0 Allergy status to penicillin; Z91.040 Latex allergy status
CPT/HCPCS: J1885; J2405; J7030; Q9967